=== PATIENT | male | born 1980 | race Caucasian/White ===

== ENCOUNTER 2017-01-21 22:42 | Inpatient (IN) | payer BC ==
[2017-01-21] MEDS ORDERED: ACETAMINOPHEN TAB 325 MG TAB PO STA (23:13)
[2017-01-21] MEDS ORDERED: SODIUM CHLORIDE 0.9% 1,000 ML IV STA (23:13)
[2017-01-21] MEDS ORDERED: KETOROLAC 30 MG/ML 1 ML VIAL IVP STA (23:13)
[2017-01-21] MEDS ORDERED: methylPREDNISolone SOD SUCCI 125 MG/2 ML VIAL IV ONE (23:15)
[2017-01-21] MEDS ORDERED: IPRATROPIUM-ALBUTEROL 3 ML NEB INHALATION STA (23:15)
--- NOTE | 2017-01-21 23:24 | ED ---
SOB HPI - General Chief Complaint: Shortness of Breath Stated Complaint: SOB Time Seen by Provider: 01/21/17 22:53 Source: patient Mode of arrival: ambulatory Limitations: no limitations - History of Present Illness Initial Comments: Patient presents with cough for the past 2 days. Patient states coughed hard and bed last night, causing left-sided chest pain. He states he has pain left- sided chest only when he coughs or takes a deep breath. Patient states cough is mostly dry, has had some yellow phlegm. Denies rhinorrhea or nasal congestion. Denies nausea, vomiting, abdominal pain, diarrhea, changes in urination. Patient does admit to decreased appetite. Patient afebrile in triage, denies any fevers at home. Denies history of blood clots, denies history of lung disease, denies tobacco use, denies recent trauma or surgery, denies prolonged immobilization, denies history of coronary artery disease. Earliest family history of heart disease at age 45. No recent travel or known sick contacts. No history of hypertension, high cholesterol, diabetes. MD Complaint: shortness of breath, cough Onset/Timin -: days(s) - Related Data Home Medications Medication Instructions Recorded Confirmed Ibuprofen [Motrin] 800 mg PO Q8HR PRN 03/18/16 01/21/17 Dm/Acetaminophen/Doxylamine [Vicks 30 ml PO HS PRN 01/21/17 01/21/17 Nyquil Cold & Flu Liquid] Allergies Allergy/AdvReac Type Severity Reaction Status Date / Time codeine AdvReac Vomiting Verified 01/21/17 23:10 Review of Systems ROS Statement: Those systems with pertinent positive or pertinent negative responses have been documented in the HPI. ROS Other: All systems not noted in ROS Statement are negative. Constitutional: Reports: fever. Denies: chills, weakness Eyes: Denies: vision change ENT: Denies: ear pain, throat pain, congestion Respiratory: Reports: cough, dyspnea. Denies: wheezes, hemoptysis, stridor Cardiovascular: Reports: chest pain (only when coughing). Denies: palpitations , syncope Endocrine: Denies: fatigue Gastrointestinal: Denies: abdominal pain, nausea, vomiting, diarrhea, constipation Genitourinary: Denies: urgency, dysuria, frequency Musculoskeletal: Denies: back pain Skin: Denies: rash Neurological: Denies: headache Past Medical History Past Medical History: GERD/Reflux, Skin Disorder, Vascular Disorder Additional Past Medical History / Comment(s): psoriasis History of Any Multi-Drug Resistant Organisms: MRSA Date of last positivie culture/infection: 01/14/16 MDRO Source:: RIGHT LEG Past Surgical History: Ablation Additional Past Surgical History / Comment(s): pilonidal cyst removed Past Anesthesia/Blood Transfusion Reactions: No Reported Reaction Past Psychological History: No Psychological Hx Reported Smoking Status: Former smoker Past Alcohol Use History: Occasional Past Drug Use History: None Reported - Past Family History Mother Family Medical History: Coronary Artery Disease (CAD), Diabetes Mellitus Father Family Medical History: Diabetes Mellitus, Hypertension General Exam - General Exam Comments Initial Comments: Sitting up in bed. No acute distress. Calm, pleasant. Conversing normally. Obese. Limitations: no limitations General appearance: alert, in no apparent distress Head exam: Present: atraumatic, normocephalic Eye exam: Present: normal appearance, PERRL, EOMI. Absent: scleral icterus, conjunctival injection ENT exam: Present: normal exam, normal oropharynx, mucous membranes moist Neck exam: Present: normal inspection. Absent: tenderness, meningismus Respiratory exam: Present: normal lung sounds bilaterally, decreased breath sounds (Mild decreased breath sounds diffusely.), other. Absent: respiratory distress, wheezes, rales, rhonchi, stridor, accessory muscle use Cardiovascular Exam: Present: normal rhythm, tachycardia GI/Abdominal exam: Present: soft. Absent: tenderness, guarding, rebound Extremities exam: Present: other (Small skin scabs on the lower extremities bilaterally, increased pigmentation of lower extremities bilaterally consistent with venous stasis. ) Neurological exam: Present: alert, oriented X3 Psychiatric exam: Present: normal affect, normal mood Skin exam: Present: warm, dry, intact, other (See Extremities above) Course Vital Signs 01/21/17 01/21/17 01/21/17 22:43 23:36 23:50 Temperature 101.0 F H Pulse Rate 129 H 124 H 116 H Respiratory 20 Rate Blood Pressure 161/78 O2 Sat by Pulse 99 Oximetry 01/21/17 01/22/17 01/22/17 23:53 00:01 00:36 Temperature 102.7 F H 102 F H Pulse Rate 117 H 116 H Respiratory 20 20 Rate Blood Pressure 140/74 158/70 O2 Sat by Pulse 97 98 Oximetry Medical Decision Making - Medical Decision Making Heart rate 139 on arrival. May be secondary to dehydration versus fever. We' ll give Toradol, Tylenol, IV fluids. EKG shows sinus tachycardia, heart rate 1:30, no ST or T-wave changes appreciated. Patient experiencing pleurisy, tachycardia, shortness of breath. Patient is not hypoxic on room air. We'll get d-dimer for possible blood clot. WBC slightly elevated. 00:35 CXR shows LLL PNA. SEPSIS IDENTIFIED AT THIS TIME. Blood cx, LA, azith, rocephin ordered. CT negative for pulmonary embolism, confirms left lower lobe pneumonia with pleural effusion. Heart rate improved to 115, we'll continue with IV fluid boluses. Patient & Family updated and plan. Will admit for admission for sepsis secondary to pneumonia. PCP Dr. Jann trivedi for notification of admission. - Lab Data Result diagrams: 01/21/17 23:01 01/21/17 23:01 Lab Results 01/21/17 01/21/17 01/21/17 Range/Units 23:01 23:01 23:01 WBC 10.7 H (3.8-10.6) k/uL RBC 4.35 (4.30-5.90) m/uL Hgb 13.8 (13.0-17.5) gm/dL Hct 41.3 (39.0-53.0) % MCV 95.1 (80.0-100.0) fL MCH 31.8 (25.0-35.0) pg MCHC 33.4 (31.0-37.0) g/dL RDW 13.2 (11.5-15.5) % Plt Count 322 (150-450) k/uL Neutrophils % 71 % Lymphocytes % 15 % Monocytes % 10 % Eosinophils % 3 % Basophils % 1 % Neutrophils # 7.5 (1.3-7.7) k/uL Lymphocytes # 1.6 (1.0-4.8) k/uL Monocytes # 1.1 H (0-1.0) k/uL Eosinophils # 0.3 (0-0.7) k/uL Basophils # 0.1 (0-0.2) k/uL PT 10.1 (9.0-12.0) sec INR 1.0 (<1.2) APTT 24.7 (22.0-30.0) sec D-Dimer 2.91 H (<0.60) mg/L FEU Sodium 138 (137-145) mmol/L Potassium 4.6 (3.5-5.1) mmol/L Chloride 103 (98-107) mmol/L Carbon Dioxide 23 (22-30) mmol/L Anion Gap 12 mmol/L BUN 11 (9-20) mg/dL Creatinine 0.80 (0.66-1.25) mg/dL Est GFR (MDRD) Af Amer >60 (>60 ml/min/1.73 sqM) Est GFR (MDRD) Non-Af >60 (>60 ml/min/1.73 sqM) Glucose 120 H (74-99) mg/dL Calcium 9.6 (8.4-10.2) mg/dL Urine Color Urine Appearance (Clear) Urine pH (5.0-8.0) Ur Specific [place] (1.001-1.035) Urine Protein (Negative) Urine Glucose (UA) (Negative) Urine Ketones (Negative) Urine Blood (Negative) Urine Nitrite (Negative) Urine Bilirubin (Negative) Urine Urobilinogen (<2.0) mg/dL Ur Leukocyte Esterase (Negative) 01/22/17 Range/Units 00:01 WBC (3.8-10.6) k/uL RBC (4.30-5.90) m/uL Hgb (13.0-17.5) gm/dL Hct (39.0-53.0) % MCV (80.0-100.0) fL MCH (25.0-35.0) pg MCHC (31.0-37.0) g/dL RDW (11.5-15.5) % Plt Count (150-450) k/uL Neutrophils % % Lymphocytes % % Monocytes % % Eosinophils % % Basophils % % Neutrophils # (1.3-7.7) k/uL Lymphocytes # (1.0-4.8) k/uL Monocytes # (0-1.0) k/uL Eosinophils # (0-0.7) k/uL Basophils # (0-0.2) k/uL PT (9.0-12.0) sec INR (<1.2) APTT (22.0-30.0) sec D-Dimer (<0.60) mg/L FEU Sodium (137-145) mmol/L Potassium (3.5-5.1) mmol/L Chloride (98-107) mmol/L Carbon Dioxide (22-30) mmol/L Anion Gap mmol/L BUN (9-20) mg/dL Creatinine (0.66-1.25) mg/dL Est GFR (MDRD) Af Amer (>60 ml/min/1.73 sqM) Est GFR (MDRD) Non-Af (>60 ml/min/1.73 sqM) Glucose (74-99) mg/dL Calcium (8.4-10.2) mg/dL Urine Color Yellow Urine Appearance Clear (Clear) Urine pH 6.0 (5.0-8.0) Ur Specific [place] 1.018 (1.001-1.035) Urine Protein Trace H (Negative) Urine Glucose (UA) 1+ H (Negative) Urine Ketones Negative (Negative) Urine Blood Negative (Negative) Urine Nitrite Negative (Negative) Urine Bilirubin Negative (Negative) Urine Urobilinogen <2.0 (<2.0) mg/dL Ur Leukocyte Esterase Negative (Negative) Disposition Clinical Impression: Sepsis, Pneumonia Disposition: ADMITTED IP TO THIS [facility] Condition: Good Referrals: Trev Forte DO [Primary Care Provider] - 1-2 days
[2017-01-21 23:26] LABS: Basophils # (A) 0.1 k/uL (0-0.2); Basophils % (A) 1 %; CH 31.6; CHCM 33.4; Eosinophils # (A) 0.3 k/uL (0-0.7); Eosinophils % (A) 3 %; HCT 41.3 % (39.0-53.0); HDW 2.32; HGB 13.8 gm/dL (13.0-17.5); Luc # (Auto) 0.13; Luc % (Auto) 1; Lymphocytes # (A) 1.6 k/uL (1.0-4.8); Lymphocytes % (A) 15 %; MCH 31.8 pg (25.0-35.0); MCHC 33.4 g/dL (31.0-37.0); MCV 95.1 fL (80.0-100.0); Mean Platelet Volume 7.8; Monocytes # (A) 1.1 k/uL (0-1.0); Monocytes % (A) 10 %; Neutrophils # (A) 7.5 k/uL (1.3-7.7); Neutrophils % (A) 71 %; RBC 4.35 m/uL (4.30-5.90); RDW 13.2 % (11.5-15.5); WBC 10.7 k/uL (3.8-10.6); WBC (Perox) 10.45
[2017-01-21 23:35] LABS: Anion Gap 12 mmol/L; Blood Urea Nitrogen 11 mg/dL (9-20); Calcium 9.6 mg/dL (8.4-10.2); Carbon Dioxide 23 mmol/L (22-30); Chloride 103 mmol/L (98-107); Glucose 120 mg/dL (74-99); Non-African American GFR(MDRD) >60 (>60 ml/min/1.73 sqM); Potassium 4.6 mmol/L (3.5-5.1); Sodium 138 mmol/L (137-145)
[2017-01-21 23:41] LABS: Partial Thromboplastin Time 24.7 sec (22.0-30.0); Prothrombin Time 10.1 sec (9.0-12.0)
[2017-01-22] MEDS ORDERED: RX INFO: IV CONTRAST WAS GIVEN 1 EACH MISC MISCELLANE PRN (00:09)
--- NOTE | 2017-01-22 00:12 | XR ---
EXAMINATION TYPE: XR chest 2V DATE OF EXAM: 01/22/2017 COMPARISON: NONE HISTORY: Cough TECHNIQUE: Frontal and lateral views of the chest are obtained. FINDINGS: There is increased density over the posterior lung base on the lateral view that is probabl y infiltrate in the left lower lobe. Exam is limited by obesity. There is no heart failure. Heart siz e is normal. There is no definite pleural effusion. IMPRESSION: There is probably some pneumonia in the left lower lobe. Limited exam.
[2017-01-22 00:27] LABS: Appearance,Urine Clear (Clear); Bilirubin,Urine Negative (Negative); Glucose,Urine (UA) 1+ (Negative); Ketones,Urine Negative (Negative); Leukocyte Esterase,Urine Negative (Negative); Nitrite,Urine Negative (Negative); Protein,Urine Trace (Negative); Specific Gravity,Urine 1.018 (1.001-1.035); UA Billing (MACRO vs. MICRO) CHEM; Urobilinogen,Urine <2.0 mg/dL (<2.0)
[2017-01-22] MEDS ORDERED: SODIUM CHLORIDE 0.9% 1,000 ML IV STA (00:28)
[2017-01-22] MEDS ORDERED: cefTRIAXone IN SWFI 1,000 MG/10 ML SYRINGE IVP STA (00:30)
--- NOTE | 2017-01-22 00:39 | CT ---
EXAMINATION TYPE: CT chest angio for PE DATE OF EXAM: 01/22/2017 COMPARISON: NONE HISTORY: SOB, COUGH, ELEVATED D DIMER CT DLP: 801.40 mGycm Automated exposure control for dose reduction was used. CONTRAST: CT Chest for pulmonary embolism performed with with IV Contrast, patient injected with 100 mL of Omni paque 350. There are 3-D post processed images. FINDINGS: The heart appears enlarged. There is no pericardial effusion. There is small left pleural effusion. T here is some optimal contrast in the pulmonary arteries. I see no filling defects. There is no medias tinal adenopathy. There is no sign of aortic aneurysm or dissection. There is some mild infiltrate in the left lower lobe. IMPRESSION: There is evidence of left lower lobe pneumonia and left pleural effusion. Cardiomegaly. No evidence f or pulmonary embolism.
[2017-01-22] MEDS ORDERED: IBUPROFEN 600 MG TAB PO PRN (00:40)
[2017-01-22] MEDS: SODIUM CHLORIDE 0.9% 500 ML IV SCH ×2 (00:53→01:08)
[2017-01-22] MEDS: SODIUM CHLORIDE 0.9% 1,000 ML IV SCH ×3 (00:56→20:17)
[2017-01-22] MEDS ORDERED: AZITHROMYCIN 500 MG in SODIUM CHLORIDE 0.9% 250 ML IVPB ONE (01:00)
[2017-01-22 03:00] VITALS: BMI 43.1
[2017-01-22] MEDS ORDERED: ACETAMINOPHEN TAB 325 MG TAB PO PRN (08:17)
[2017-01-22] MEDS: FAMOTIDINE 20 MG TAB PO SCH ×2 (08:48→20:17)
[2017-01-22] MEDS ORDERED: guaiFENesin 600 MG TABLET.ER PO PRN (09:45)
--- NOTE | 2017-01-22 11:23 | P.HPIM ---
History of Present Illness H&P Date: 01/22/17 Chief Complaint: Cough and shortness of breath 36-year-old male who presented to the emergency room 01/21/2017 with a chief complaint of coughing for the last 2-3 days. The patient also states because he was coughing so hard he began to get pains on the left side of his chest and also into his abdomen. He had a productive cough with yellow sputum as well. He was complaining of shortness of breath and states that the pain increased when he took a deep breath. In the emergency room the patient was found to be tachycardic with a rate in the 140s. The patient was given IV fluids in the emergency room. A chest x- ray was completed which revealed left lower lobe pneumonia. The patient's white count on admission was 10.7. D-dimer was 2.91. A CT of the chest was performed which was negative for pulmonary embolism but did confirm left lower lobe pneumonia and a pleural effusion. The patient's lactic acid on admission was 2.3. EKG was completed which shows sinus tachycardia with no ST or T-wave changes. The patient was started on azithromycin and ceftriaxone. Blood cultures were drawn and are currently pending. The patient was admitted to the hospital under the care of Dr. Forte. The patient was seen and examined at the bedside. Spouse present. The patient states he is feeling much better this morning. He denies shortness of breath. He is maintaining oxygen saturation greater than 92% on room air. He states his cough has improved and is no longer productive. He states the pain that he was feeling from coughing has improved. The patient's temperature this morning was 99.4. It is noted his temperature last night reached 102.0. The patient is tolerating a regular diet without nausea or vomiting. He denies any pain at this time. Review of Systems GENERAL: Positive for recent fever and chills. EYES: Denies blurred vision. Denies vision changes. Denies eye pain. EARS, NOSE, MOUTH, & THROAT: Denies headache. Denies sore throat. Denies ear pain. RESPIRATORY: Positive for recent cough and shortness of breath. Denies sputum production. Denies hemoptysis. CARDIOVASCULAR: Positive for recent pleuritic chest pain. Denies chest pain or pressure at this time. Denies palpitations. Denies arrhythmias. GASTROINTESTINAL: Denies abdominal pain. Denies diarrhea. Denies constipation. Denies nausea. Denies vomiting. Denies heartburn. Denies blood in the stool. GENITOURINARY: Denies urinary frequency. Denies burning. Denies dysuria. Denies cloudy urine. Denies blood in the urine. MUSCULOSKELETAL: Denies myalgias. Denies joint swelling. Denies decreased range of motion beyond patients baseline. INTEGUMENTARY: Denies pruitis. Denies rash. PSYCHIATRIC: Denies suicidal or homicial ideations. ENDOCRINE: Denies weight change. Denies polydipsia. Denies polyuria. HEMATOLOGIC: Denies bleeding disorders. Past Medical History Past Medical History: GERD/Reflux, Skin Disorder, Vascular Disorder Additional Past Medical History / Comment(s): psoriasis History of Any Multi-Drug Resistant Organisms: MRSA Date of last positivie culture/infection: 01/14/16 MDRO Source:: RIGHT LEG Past Surgical History: Ablation Additional Past Surgical History / Comment(s): pilonidal cyst removed Past Anesthesia/Blood Transfusion Reactions: No Reported Reaction Past Psychological History: No Psychological Hx Reported Smoking Status: Never smoker Past Alcohol Use History: Occasional Past Drug Use History: None Reported - Past Family History Mother Family Medical History: Coronary Artery Disease (CAD), Diabetes Mellitus Father Family Medical History: Diabetes Mellitus, Hypertension Medications and Allergies Home Medications Medication Instructions Recorded Confirmed Type Ibuprofen [Motrin] 800 mg PO Q8HR PRN 03/18/16 01/21/17 History Dm/Acetaminophen/Doxylamine [Vicks 30 ml PO HS PRN 01/21/17 01/21/17 History Nyquil Cold & Flu Liquid] Allergies Allergy/AdvReac Type Severity Reaction Status Date / Time codeine AdvReac Vomiting Verified 01/21/17 23:10 Physical Exam Vitals: Vital Signs Temp Pulse Pulse Resp BP BP Pulse Ox 01/22/17 04:00 99.4 F 97 16 119/59 95 01/22/17 02:28 99.0 F 98 18 127/67 98 01/22/17 01:33 100.6 F H 103 H 18 140/65 96 01/22/17 00:36 102 F H 116 H 20 158/70 98 01/22/17 00:01 117 H 20 140/74 97 01/21/17 23:53 102.7 F H 01/21/17 23:50 116 H 01/21/17 23:36 124 H 01/21/17 22:43 101.0 F H 129 H 20 161/78 99 Intake and Output 01/21/17 01/22/17 01/22/17 22:59 06:59 14:59 Intake Total 300 240 Balance 300 240 Intake: Intake, IV Titration 300 Amount Sodium Chloride 0.9% 1, 300 000 ml @ 100 mls/hr IV . Q10H [facility] Rx#:[id number] Oral 240 Other: Weight 156.489 kg 159.6 kg GENERAL: This is a obese 36-year-old male in no apparent distress at the time of examination. Pleasant and cooperative. HEENT: Head is atraumatic, normocephalic. Pupils are equal, round, and reactive to light. Sclerae anicteric. Conjunctivae are clear. Mucus membranes of the mouth are moist. Neck is supple. RESPIRATORY: Clear to ausculation. No wheezes, rales, or rhonchi. Diminished in the bases. No use of accessory muscles. Patient maintaining oxygen saturation greater than 92% on room air. No chest wall tenderness is noted on palpation or with deep breathing. CARDIOVASCULAR: Regular rate and rhythm. S1 and S2 noted. No systolic or diastolic murmur auscultated. No JVD noted. No S3 or S4 noted. GASTROINTESTINAL: No distention noted. Abdomen soft and round. Normal active bowel sounds auscultated x 4 quadrants. No pain or tenderness noted upon palpation. INTEGUMENTARY: No cyanosis. No jaundice. No rashes noted. No cellulitis noted. EXTREMITIES: 2+ peripheral pulses. No evidence of peripheral edema. No calf tenderness noted. NEUROLOGIC: Cranial nerves II-XII intact. PSYCHIATRIC: Awake, alert, and oriented X 3. Appropriate affect. Intact judgement and insight. Results CBC & Chem 7: 01/21/17 23:01 01/21/17 23:01 Labs: Abnormal Lab Results - Last 24 Hours (Table) 01/21/17 01/21/17 01/21/17 Range/Units 23:01 23:01 23:01 WBC 10.7 H (3.8-10.6) k/uL Monocytes # 1.1 H (0-1.0) k/uL D-Dimer 2.91 H (<0.60) mg/L FEU Glucose 120 H (74-99) mg/dL Plasma Lactic Acid Mark (0.7-2.0) mmol/L Urine Protein (Negative) Urine Glucose (UA) (Negative) 01/21/17 01/22/17 Range/Units 23:01 00:01 WBC (3.8-10.6) k/uL Monocytes # (0-1.0) k/uL D-Dimer (<0.60) mg/L FEU Glucose (74-99) mg/dL Plasma Lactic Acid Mark 2.3 H* (0.7-2.0) mmol/L Urine Protein Trace H (Negative) Urine Glucose (UA) 1+ H (Negative) Thrombosis Risk Factor Assmnt - Choose All That Apply Each Factor Represents 1 point: Obesity (BMI >25), Sepsis (< 1month) Thrombosis Risk Factor Assessment Total Risk Factor Score: 2 Thrombosis Risk Factor Assessment Level: Low Risk Assessment and Plan Plan: ASSESSMENT: Left lower lobe pneumonia, present on admission, sputum culture pending Sepsis with associated tachycardia and fever, secondary to pneumonia, present on admission Pleuritic chest pain, present on admission, likely secondary to persistent coughing, EKG without ST or T-wave changes Elevated d-dimer, CT of the chest negative for pulmonary embolus Elevated lactic acid, secondary to pneumonia, improved History of MRSA to right leg 12/2015 Gastroesophageal reflux disease History of tobacco abuse, in remission, patient is a former cigarette smoker Morbid obesity: BMI 44.0 PLAN: -Continue azithromycin and ceftriaxone -Continue IV hydration -Tylenol PRN for fever -Obtain sputum culture -Mucinex 1200 mg by mouth every 12 hours PRN -Await results of blood cultures -Home meds as appropriate -Monitor labs. We will repeat in a.m. -GI prophylaxis: Pepcid 20 mg by mouth twice a day -DVT prophylaxis: Heparin 5000 units subcu every 8 hours -Monitor vital signs and address as appropriate -Discharge planning: Patient to return home. Anticipate discharge within the next 24-48 hours. Nurse practitioner note has been reviewed by physician. Signing provider agrees with the documented findings, assessment, and plan of care.
[2017-01-22] MEDS: HEPARIN SODIUM,PORCINE 5,000 UNIT/ML 1 ML VIAL SQ SCH (15:22)
[2017-01-23] MEDS: HEPARIN SODIUM,PORCINE 5,000 UNIT/ML 1 ML VIAL SQ SCH ×2 (00:05→08:54)
[2017-01-23] MEDS: SODIUM CHLORIDE 0.9% 1,000 ML IV SCH (05:08)
[2017-01-23 06:46] LABS: Basophils % (A) 0 %; CH 31.9; CHCM 32.8; Eosinophils % (A) 0 %; HCT 37.3 % (39.0-53.0); HDW 2.32; Luc # (Auto) 0.19; Luc % (Auto) 2; Lymphocytes # (A) 1.7 k/uL (1.0-4.8); Lymphocytes % (A) 16 %; MCH 31.4 pg (25.0-35.0); MCHC 32.1 g/dL (31.0-37.0); MCV 97.8 fL (80.0-100.0); Mean Platelet Volume 7.8; Monocytes # (A) 0.8 k/uL (0-1.0); Monocytes % (A) 7 %; Neutrophils # (A) 7.9 k/uL (1.3-7.7); Neutrophils % (A) 74 %; RBC 3.82 m/uL (4.30-5.90); RDW 12.9 % (11.5-15.5); WBC 10.6 k/uL (3.8-10.6); WBC (Perox) 11.39
[2017-01-23 07:00] LABS: Anion Gap 8 mmol/L; Blood Urea Nitrogen 11 mg/dL (9-20); Calcium 8.8 mg/dL (8.4-10.2); Carbon Dioxide 25 mmol/L (22-30); Chloride 108 mmol/L (98-107); Glucose 108 mg/dL (74-99); Non-African American GFR(MDRD) >60 (>60 ml/min/1.73 sqM); Potassium 4.5 mmol/L (3.5-5.1); Sodium 141 mmol/L (137-145)
[2017-01-23] MEDS: cefTRIAXone IN SWFI 1,000 MG/10 ML SYRINGE IVP SCH ×2 (08:53→09:08)
[2017-01-23] MEDS: FAMOTIDINE 20 MG TAB PO SCH (08:54)
[2017-01-23] MEDS ORDERED: AZITHROMYCIN 500 MG in SODIUM CHLORIDE 0.9% 250 ML IVPB SCH (09:00)
[2017-01-23 09:14] VITALS: RESP 18
[2017-01-23 12:37] VITALS: BP 125/60; PULSE 73; TEMP 97.2
--- NOTE | 2017-03-08 22:42 | P.DS ---
Providers Date of admission: 01/22/17 01:11 Expected date of discharge: 01/23/17 Attending physician: Trev Forte Primary care physician: Trev Forte [facility] Course: Discharge diagnosis Left lower lobe pneumonia, present on admission, sputum culture pending Sepsis with associated tachycardia and fever, secondary to pneumonia, present on admission Pleuritic chest pain, present on admission, likely secondary to persistent coughing, EKG without ST or T-wave changes Elevated d-dimer, CT of the chest negative for pulmonary embolus Elevated lactic acid, secondary to pneumonia, improved History of MRSA to right leg 12/2015 Gastroesophageal reflux disease History of tobacco abuse, in remission, patient is a former cigarette smoker Morbid obesity: BMI 44.0 Hospital course 36-year-old male who presented to the emergency room 01/21/2017 with a chief complaint of coughing for the last 2-3 days. The patient also states because he was coughing so hard he began to get pains on the left side of his chest and also into his abdomen. He had a productive cough with yellow sputum as well. He was complaining of shortness of breath and states that the pain increased when he took a deep breath. In the emergency room the patient was found to be tachycardic with a rate in the 140s. The patient was given IV fluids in the emergency room. A chest x- ray was completed which revealed left lower lobe pneumonia. The patient's white count on admission was 10.7. D-dimer was 2.91. A CT of the chest was performed which was negative for pulmonary embolism but did confirm left lower lobe pneumonia and a pleural effusion. The patient's lactic acid on admission was 2.3. EKG was completed which shows sinus tachycardia with no ST or T-wave changes. The patient was started on azithromycin and ceftriaxone. Blood cultures were drawn which came out negative. Patient didn't improve symptomatically with antibiotics and is stable to be discharged today. Discharge PHYSICAL EXAMINATION: Patient is lying in the bed comfortably, no acute distress, awake alert and oriented.. HEENT: Normocephalic. Neck is supple. Pupils reactive. Nostrils clear. Oral cavity is moist. Ears reveal no drainage. Neck reveals no JVD, carotid bruits, or thyromegaly. CHEST EXAMINATION: Trachea is central. Symmetrical expansion. Lung maharaj clear to auscultation and percussion. CARDIAC: Normal S1, S2 with no gallops. No murmurs ABDOMEN: Soft. Bowel sounds normal. No organomegaly. No abdominal bruits. Extremities: reveal no edema. No clubbing or cyanosis Neurologically awake, alert, oriented x3 with well-coordinated movements. No focal deficits noted Skin: No rash or skin lesions. Psychiatric: Operative. Nonsuicidal Musculoskeletal: No joint swelling or deformity. Normal range of motion. Patient Condition at Discharge: Good Plan - Discharge Summary Discharge Rx Participant: Yes New Discharge Prescriptions: New Cefuroxime Axetil [Ceftin] 500 mg PO BID 5 Days #10 tab Continue Ibuprofen [Motrin] 800 mg PO Q8HR PRN PRN Reason: Pain Dm/Acetaminophen/Doxylamine [Vicks Nyquil Cold & Flu Liquid] 30 ml PO HS PRN PRN Reason: Flu Symptoms Discharge Medication List Ibuprofen [Motrin] 800 mg PO Q8HR PRN 03/18/16 [History] Dm/Acetaminophen/Doxylamine [Vicks Nyquil Cold & Flu Liquid] 30 ml PO HS PRN 05/08 [History] Cefuroxime Axetil [Ceftin] 500 mg PO BID 5 Days #10 tab 01/23/17 [Rx] Follow up Appointment(s)/Referral(s): rTev Forte DO [Primary Care Provider] - 1-2 days Patient Instructions/Handouts: Viral Pneumonia (DC), Sepsis (GEN), Bacterial Pneumonia (DC) Discharge/Stand Alone Forms: Work/Release Restrictions Form Discharge Disposition: HOME SELF-CARE
== END 2017-01-23 13:49 | disposition home or self-care (01) | DRG 871 ==
LOC: EC 22:42 → 6SEL 01-22 01:11
PROVIDERS: ADMIT Family Medicine; ATTEND Family Medicine
DX: A41.9 Sepsis, unspecified organism (principal); J18.9 Pneumonia, unspecified organism; J90 Pleural effusion, not elsewhere classified; Z68.41 Body mass index [BMI] 40.0-44.9, adult; E66.01 Morbid (severe) obesity due to excess calories; K21.9 Gastro-esophageal reflux disease without esophagitis; R79.1 Abnormal coagulation profile; L40.9 Psoriasis, unspecified; R07.89 Other chest pain; F17.211 Nicotine dependence, cigarettes, in remission; Z86.14 Personal history of Methicillin resistant Staphylococcus aureus infection; Z88.5 Allergy status to narcotic agent; Z82.49 Family history of ischemic heart disease and other diseases of the circulatory system
CPT/HCPCS: 36415; 71020; 71275; 80048; 81003; 83605; 85025; 85379; 85610; 85730; 87040; 87070; 87205; 93005; 94640; 96361; 96365; 96368; 96375; 99285

== ENCOUNTER → 2017-01-27 | Outpatient (CLI) | payer BC ==
--- NOTE | 2017-01-27 14:39 | XR ---
EXAMINATION TYPE: XR chest 2V DATE OF EXAM: 01/27/2017 COMPARISON: Prior chest x-ray 01/22/2017 HISTORY: Pneumonia TECHNIQUE: Frontal and lateral views of the chest are obtained. FINDINGS: There is no focal air space opacity, pleural effusion, or pneumothorax seen. The cardiac silhouette size is within normal limits. The osseous structures are intact. IMPRESSION: Interval improvement in aeration as compared to prior exam.
== END | disposition home or self-care (01) ==
LOC: RADXRMAIN 13:47
PROVIDERS: ATTEND Family Medicine
DX: J18.9 Pneumonia, unspecified organism (principal)
CPT/HCPCS: 71020

== ENCOUNTER → 2020-01-24 | Outpatient (CLI) | payer BC ==
--- NOTE | 2020-01-24 14:53 | US ---
"LOWER EXTREMITY VENOUS INSUFFICIENCY CLINICAL HISTORY: I87.2 VENOUS INSUFFICIENCY (CHRONIC @ PERIFHERAL). hx of left leg nonhealing wound. Hx bilateral varicose vein ablation SIDE PERFORMED: Bilateral 1) Color flow is present and patency is documented in the following vessels. No DVT or SVT is noted . EIV Common Femoral Vein Deep Femoral Vein Femoral Vein Popliteal Vein Proximal Calf Veins Greater Saph Vein Upper Small Saph Vein - limited left visualization 2) There is venous reflux noted at the following venous levels: Right GSV Right CFV Right FV Prox Right FV distal Right Popliteal vein distal Right SSV Left GSV Left CFV Left FV distal Bilateral GSV with possible septations vs SVT vs other etiology IMPRESSION: 1. No diagnostic evidence of DVT. There are septations within the greater saphenous vein which could be secondary to superficial venous thrombosis. Correlate clinically. 2. Venous insufficiency as noted above. A Yellow level critical message alert has been initiated for Trev Saleh DPM via the [employer] 36 0 | Critical Results System on 01/24/2020 2:51 PM. This message alert has been sent to Trev Saleh DPM via the preferences provided by the clinician for the receipt of Radiology Critical Findings. [facility] ID [id number]."
== END | disposition home or self-care (01) ==
LOC: RADUSWWP 13:31
PROVIDERS: ATTEND Podiatrist
DX: I87.2 Venous insufficiency (chronic) (peripheral) (principal); L97.822 Non-pressure chronic ulcer of other part of left lower leg with fat layer exposed; L40.8 Other psoriasis; E66.01 Morbid (severe) obesity due to excess calories
CPT/HCPCS: 93922; 93970